=== PATIENT | male | born 1960 | race Caucasian/White ===

== ENCOUNTER 2017-06-25 16:57 | Emergency (ER) | payer BC, OTHER ==
[~2017-06-25 16:57] MED LIST: ISOVUE-370 76%-LOCM 1 ML ONE
[2017-06-25 17:24] LABS: #Lymphocytes 1.4 thou/uL (1.20-3.40); #Monocytes 2.1 thou/uL (0.11-0.59); #Neutrophils 11.1 thou/uL (1.40-6.50); %Basophils 0.3 % (0.0-1.0); %Eosinophils 0.1 % (0.0-10.0); %Lymphocytes 9.7 % (21.0-51.0); %Monocytes 14.5 % (0.0-10.0); Hematocrit 42.4 % (42.0-52.0); Mean Platelet Volume 7.7 fL (7.4-10.4); White Blood Cell (WBC) Count 14.7 thou/uL (4.8-10.8)
--- NOTE | 2017-06-25 17:41 | RAD ---
PORTABLE CHEST ONE VIEW: 06/25/17 at 4:56 p.m. HISTORY: Chest pain. FINDINGS/IMPRESSION: The heart size is normal. The lungs are expanded without focal areas of consolidation, pneumothorax or pleural effusions. There is fullness in the right hilar region. Correlation with previous exams w ould be helpful if made available. If not, a CT scan should be obtained with IV contrast to exclude mass. POS: H
[2017-06-25 17:49] LABS: ALT (SGPT) 19 U/L (8-55); AST (SGOT) 15 U/L (5-34); Alkaline Phosphatase 75 U/L (40-150); Anion Gap 11 mmol/L (10-20); BUN (Urea Nitrogen) 9 mg/dL (8.4-25.7); Bilirubin, Total 0.8 mg/dL (0.2-1.2); CK (CPK) 125 U/L (30-200); Calc. Creatinine Clearance 0 mL/min (70-130); Calcium 9.2 mg/dL (7.8-10.44); Carbon Dioxide 24 mmol/L (22-29); Chloride 102 mmol/L (98-107); Estimated GFR-MDRD 78; Globulin 3.6 g/dL (2.4-3.5); Lipase 5 U/L (8-78); Protein, Total 7.6 g/dL (6.0-8.3)
[2017-06-25 17:53] LABS: Troponin I Less than 0.010 ng/mL (< 0.028)
--- NOTE | 2017-06-25 19:27 | CT ---
CT PULMONARY ANGIOGRAM WITH IV CONTRAST AND 3D POSTPROCESSIN06/25/17 HISTORY: Chest pain. FINDINGS: There is good contrast opacification of the pulmonary artery vasculature without filling defects to suggest pulmonary embolism. The thoracic aorta is well opacified without aneurysmal dissection. No p leural or pericardial effusions are seen. There are dependent changes of the lung bases. There is ma ss-like consolidation in the anterior aspect of the right upper lobe measuring 6.4 x 2.9 cm. There a re a few prominent mediastinal lymph nodes. The largest measuring about 11 mm in the subcarinal kannan on. There are degenerative changes in the spine. There are emphysematous changes most prominent in t he upper lung aguila. IMPRESSION: 1. No CT evidence of pulmonary embolism. 2. Mass-like area of consolidation in the anterior aspect of the right upper lobe. A followup e xam should be obtained two weeks after a course of antibiotics. If this persists, attempt at biopsy should be made to exclude malignancy. Code T and Code LN POS: BETZAIDA
[2017-06-25 19:29] LABS: Bilirubin Negative (Negative); Blood, Urine Negative (Negative); Glucose, Urine (Dipstick) Negative (Negative); Ketone, Urine Negative (Negative); Nitrite Negative (Negative); Protein, Urine (Dipstick) Negative (Neg-Trace)
[2017-06-25] MEDS ORDERED: Ketorolac Tromethamine 30 MG/ML VIAL ONE (20:00)
== END 2017-06-25 20:56 | disposition home or self-care (01) ==
LOC: ERS 16:57
DX: R07.9 Chest pain, unspecified (principal); E78.5 Hyperlipidemia, unspecified; I10 Essential (primary) hypertension; Z87.891 Personal history of nicotine dependence; Z79.899 Other long term (current) drug therapy
CPT/HCPCS: 36415; 71010; 71275; 80053; 81003; 82553; 83690; 84484; 85025; 85379; 93005; 96361; 96374; J1885

== ENCOUNTER 2018-12-31 02:08 | Emergency (ER) | payer BC ==
[2018-12-31 04:03] LABS: #Basophils 0.1 thou/uL (0.0-0.2); #Eosinphils 0.2 thou/uL (0.0-0.7); #Monocytes 1.1 thou/uL (0.11-0.59); #Neutrophils 5.7 thou/uL (1.40-6.50); %Basophils 0.6 % (0.0-1.0); %Eosinophils 2.3 % (0.0-10.0); %Lymphocytes 22.4 % (21.0-51.0); %Monocytes 11.7 % (0.0-10.0); %Neutrophils 63.1 % (42.0-75.0); Hemoglobin 14.2 g/dL (14.0-18.0); Mean Corpuscular HGB CONC 33.9 g/dL (32.0-36.0); Mean Corpuscular Hemoglobin 29.7 pg (27.0-31.0); Mean Corpuscular Volume 87.9 fL (78.0-98.0); Mean Platelet Volume 8.3 fL (7.4-10.4); Platelet Count 190 thou/uL (130-400); RBC Distribution Width 12.2 % (11.5-14.5); Red Blood Cell (RBC) Count 4.78 mill/uL (4.70-6.10)
[2018-12-31 04:23] LABS: ALT (SGPT) 26 U/L (8-55); AST (SGOT) 19 U/L (5-34); Albumin 4.2 g/dL (3.5-5.0); Alkaline Phosphatase 67 U/L (40-150); Anion Gap 12 mmol/L (10-20); BUN (Urea Nitrogen) 13 mg/dL (8.4-25.7); Bilirubin, Total 0.4 mg/dL (0.2-1.2); Calc. Creatinine Clearance 0 mL/min (70-130); Calcium 9.1 mg/dL (7.8-10.44); Carbon Dioxide 25 mmol/L (22-29); Chloride 104 mmol/L (98-107); Estimated GFR-MDRD 76; Globulin 3.2 g/dL (2.4-3.5); Glucose 104 mg/dL (70-105); Potassium 3.6 mmol/L (3.5-5.1); Protein, Total 7.4 g/dL (6.0-8.3); Sodium 137 mmol/L (136-145)
[2018-12-31 05:09] LABS: Bilirubin Negative (Negative); Blood, Urine Negative (Negative); Clarity CLEAR (Clear); Glucose, Urine (Dipstick) Negative (Negative); Leukocyte Negative (Negative); Nitrite Negative (Negative); Protein, Urine (Dipstick) Negative (Neg-Trace); Specific Gravity, Urine 1.008 (1.002-1.036); Urobilinogen 0.2 mg/dL (0.2-1.0)
--- NOTE | 2018-12-31 07:24 | ULT ---
DOPPLER VENOUS ULTRASOUND OF THE RIGHT LOWER EXTREMITY: Date: 12/31/18 INDICATION: Right foot edema. TECHNIQUE: Bautista scale, color Doppler, and vascular duplex with spectral analysis was performed of the deep venou s structures of the right lower extremity. The common femoral vein, superficial femoral vein, proxima l greater saphenous vein, proximal greater profunda vein, popliteal, and posterior tibial veins were assessed. FINDINGS: Normal compression, flow, and augmentation was seen within the deep venous structures of the right lo wer extremity. IMPRESSION: No evidence of deep venous thrombosis within the right lower extremity. POS: EMPERATRIZ
== END 2018-12-31 05:16 | disposition home or self-care (01) ==
LOC: ERS 02:08
DX: R60.0 Localized edema (principal); E78.5 Hyperlipidemia, unspecified; I10 Essential (primary) hypertension; Z87.442 Personal history of urinary calculi; Z87.891 Personal history of nicotine dependence; Z79.899 Other long term (current) drug therapy
CPT/HCPCS: 36415; 80053; 81003; 85025; 85379

== ENCOUNTER 2020-11-27 22:23 | Emergency (ER) | payer OTHER ==
[2020-11-27] MEDS ORDERED: hydrALAZINE 20 MG/ML VIAL ONE (23:35)
[2020-11-27 23:51] LABS: #Basophils 0.1 thou/uL (0.0-0.2); #Eosinphils 0.3 thou/uL (0.0-0.7); #Lymphocytes 2.1 thou/uL (1.20-3.40); #Monocytes 0.9 thou/uL (0.11-0.59); #Neutrophils 5.6 thou/uL (1.40-6.50); %Basophils 0.9 % (0.0-1.0); %Lymphocytes 23.6 % (21.0-51.0); %Monocytes 10.5 % (0.0-10.0); %Neutrophils 62.1 % (42.0-75.0); Hemoglobin 14.9 g/dL (14.0-18.0); Mean Corpuscular HGB CONC 34.9 g/dL (32.0-36.0); Mean Corpuscular Hemoglobin 30.8 pg (27.0-31.0); Mean Corpuscular Volume 88.4 fL (78.0-98.0); Mean Platelet Volume 8.3 fL (7.4-10.4); Platelet Count 200 thou/uL (130-400); Red Blood Cell (RBC) Count 4.85 mill/uL (4.70-6.10)
[2020-11-28 00:01] LABS: ALT (SGPT) 25 U/L (8-55); AST (SGOT) 18 U/L (5-34); Albumin 4.1 g/dL (3.5-5.0); Alkaline Phosphatase 67 U/L (40-110); Anion Gap 14 mmol/L (10-20); BUN (Urea Nitrogen) 17 mg/dL (8.4-25.7); Bilirubin, Total 0.3 mg/dL (0.2-1.2); Calc. Creatinine Clearance 0 mL/min (70-130); Calcium 9.2 mg/dL (7.8-10.44); Carbon Dioxide 24 mmol/L (22-29); Chloride 107 mmol/L (98-107); Globulin 3.2 g/dL (2.4-3.5); Glucose 95 mg/dL (70-105); Protein, Total 7.3 g/dL (6.0-8.3); Sodium 141 mmol/L (136-145)
== END 2020-11-28 00:41 | disposition home or self-care (01) ==
LOC: ERS 22:23
DX: I10 Essential (primary) hypertension (principal); E78.5 Hyperlipidemia, unspecified; E78.00 Pure hypercholesterolemia, unspecified; Z87.891 Personal history of nicotine dependence
CPT/HCPCS: 70450; 71045; 80053; 84484; 85025; 93005; 96374; J0360

== ENCOUNTER 2022-10-20 10:36 | Outpatient (CLI) | payer OTHER | END 2022-10-20 10:37 | disposition home or self-care (01) | LOC: BICULT 10:36 | PROVIDERS: ATTEND Specialist | DX: M79.89 Other specified soft tissue disorders (principal) ==

== ENCOUNTER 2022-10-27 08:47 | Outpatient (CLI) | payer OTHER | END 2022-10-27 08:48 | disposition home or self-care (01) | LOC: SCSMRI 08:47 | PROVIDERS: ATTEND Specialist | DX: M51.17 Intervertebral disc disorders with radiculopathy, lumbosacral region (principal) | CPT/HCPCS: 72148 ==